=== PATIENT | female | born 1975 | race American Indian/Alaskan Native ===

== ENCOUNTER 2020-02-03 12:21 | Emergency (ER) | payer SELFPAY ==
--- NOTE | 2020-02-03 12:49 | Emergency Department Report ---
Blank Doc - Documentation Documentation: 44-year-old female that presents with chest pain and SOB. This initial assessment/diagnostic orders/clinical plan/treatment(s) is/are subject to change based on patient's health status, clinical progression and re- assessment by fellow clinical providers in the ED. Further treatment and workup at subsequent clinical providers discretion. Patient/guardians urged not to elope from the ED as their condition may be serious if not clinically assessed and managed. Initial orders include: 1- Patient sent to [facility] for further evaluation and treatment 2- cardiac workup
--- NOTE | 2020-02-03 13:46 | XRay Report ---
CHEST PA AND LATERAL VIEWS INDICATION: Chest Pain. COMPARISON: None. FINDINGS: Support devices: None. Heart: Within normal limits. Lungs/Pleura: No acute pulmonary or pleural findings. IMPRESSION: 1. No acute findings. Signer Name: Ludin Esparza MD Signed: 02/03/2020 1:41 PM Workstation Name: [id number]
[2020-02-03 13:47] LABS: Basophils # (Auto) 0.1 K/mm3 (0.0-0.1); Basophils % (Auto) 0.8 % (0.0-1.8); Eosinophils # (Auto) 0.3 K/mm3 (0.0-0.4); Eosinophils % (Auto) 3.1 % (0.0-4.3); Hematocrit 33.4 % (30.3-42.9); Hemoglobin 11.1 gm/dl (10.1-14.3); Lymphocytes # (Auto) 2.5 K/mm3 (1.2-5.4); Lymphocytes % (Auto) 31.2 % (13.4-35.0); Mean Corpuscular HGB Conc 33 % (30-34); Mean Corpuscular Volume 85 fl (79-97); Monocytes # (Auto) 0.5 K/mm3 (0.0-0.8); Monocytes % (Auto) 5.6 % (0.0-7.3); Platelet Count 311 K/mm3 (140-440); Red Blood Count 3.95 M/mm3 (3.65-5.03); Red Cell Distribution Width 14.6 % (13.2-15.2)
[2020-02-03 13:58] LABS: INR 0.79 (0.87-1.13); Partial Thromboplastin Time 25.9 Sec. (24.2-36.6)
[2020-02-03 14:13] LABS: Alanine Aminotransferase 18 units/L (7-56); Blood Urea Nitrogen 12 mg/dL (7-17); Calcium 9.4 mg/dL (8.4-10.2); Hemolysis Index 26
[2020-02-03 14:14] LABS: BUN/Creatinine Ratio 20
[2020-02-03] MEDS ORDERED: CYCLOBENZAPRINE 10 MG TAB PO ONE (17:36)
[2020-02-03] MEDS ORDERED: ASPIRIN 325 MG TAB PO ONE (17:36)
--- NOTE | 2020-02-03 17:42 | Emergency Department Report ---
ED Chest Pain HPI - General Chief Complaint: Chest Pain Stated Complaint: CHEST PAIN, LEFT ARM PAIN Time Seen by Provider: 02/03/20 12:48 Source: patient Mode of arrival: Ambulatory Limitations: No Limitations - History of Present Illness Initial Comments: Patient is a 44-year-old female presents emergency room complaints of midsternal chest pain that began 3 days ago. She states that today she began having pain in her left arm which prompted her to present to the emergency room. She states the pain is worse with palpation and worse with movement. She denies any cough, nausea, vomiting, diarrhea, fever, leg swelling, shortness of breath. She d enies any recent travel, recent surgery, hormone use, immobilization. She denies any known sick contacts. She states that she had a stress test approximately 5 years ago which she reports was normal. She denies any past medical history. No allergies to medications. She states that she had a hys terectomy. She does have a family cardiac history, she states that her father had an KS, her brother has CAD, and her other brother had an KS. - Related Data Previous Rx's Medication Instructions Recorded Last Taken Type Docusate Sodium [Colace CAP] 100 mg PO BID capsule 12/20/17 Unknown Rx HYDROmorphone [Dilaudid] 1 mg PO Q4H PRN #20 tablet 12/20/17 Unknown Rx Nitrofurantoin Holmes/M-Cryst 100 mg PO Q12HR #20 capsule 10/21/19 Unknown Rx [Macrobid CAP] Phenazopyridine [Pyridium] 200 mg PO TID #10 tab 10/21/19 Unknown Rx Naproxen [EC-Naprosyn] 500 mg PO BID PRN #14 tablet.dr 02/03/20 Unknown Rx methOCARBAMOL [Robaxin TAB] 500 mg PO BID PRN #14 tab 02/03/20 Unknown Rx Allergies Allergy/AdvReac Type Severity Reaction Status Date / Time No Known Allergies Allergy Verified 12/15/17 14:33 Heart Score - HEART Score History: Moderately suspicious EKG: Normal Age: < 45 Risk factors: 1-2 risk factors Troponin: < normal limit HEART Score: 2 ED Review of Systems ROS: Stated complaint: CHEST PAIN, LEFT ARM PAIN Other details as noted in HPI Comment: All other systems reviewed and negative ED Past Medical Hx - Past Medical History Previous Medical History?: No Hx Hypertension: No Hx Heart Attack/AMI: No Hx Liver Disease: No Hx Renal Disease: No Hx Seizures: No Hx Asthma: No Hx COPD: No Hx Tuberculosis: No Hx HIV: No - Surgical History Past Surgical History?: Yes Hx Breast Surgery: Yes (REDUCTION) Additional Surgical History: ovarian cyst removed. colon repair. hysterectomy - Social History Smoking Status: Never Smoker Substance Use Type: None - Medications Home Medications: Home Medications Medication Instructions Recorded Confirmed Last Taken Type Docusate Sodium [Colace CAP] 100 mg PO BID capsule 12/20/17 Unknown Rx HYDROmorphone [Dilaudid] 1 mg PO Q4H PRN #20 tablet 12/20/17 Unknown Rx Nitrofurantoin Holmes/M-Cryst 100 mg PO Q12HR #20 capsule 10/21/19 Unknown Rx [Macrobid CAP] Phenazopyridine [Pyridium] 200 mg PO TID #10 tab 10/21/19 Unknown Rx Naproxen [EC-Naprosyn] 500 mg PO BID PRN #14 tablet.dr 02/03/20 Unknown Rx methOCARBAMOL [Robaxin TAB] 500 mg PO BID PRN #14 tab 02/03/20 Unknown Rx ED Physical Exam - General Limitations: No Limitations General appearance: alert, in no apparent distress - Head Head exam: Present: atraumatic, normocephalic - Eye Eye exam: Present: normal appearance - ENT ENT exam: Present: mucous membranes moist - Respiratory Respiratory exam: Present: normal lung sounds bilaterally, chest wall tenderness (reproducible mid sternal chest wall ttp, no crepitus, no deformities). Absent: respiratory distress, wheezes, rales, rhonchi, stridor, accessory muscle use, decreased breath sounds, prolonged expiratory - Cardiovascular Cardiovascular Exam: Present: regular rate, normal rhythm, normal heart sounds. Absent: systolic murmur, diastolic murmur, rubs, gallop - Neurological Exam Neurological exam: Present: alert, oriented X3 - Psychiatric Psychiatric exam: Present: normal affect, normal mood - Skin Skin exam: Present: warm, dry, intact ED Course Vital Signs 02/03/20 12:48 Temperature 98.5 F Pulse Rate 77 Respiratory 18 Rate Blood Pressure 124/83 [Right] O2 Sat by Pulse 100 Oximetry ARNOL score - Arnol Score Age > 65: (0) No Aspirin use within the Past 7 Days: (0) No 3 or more CAD Risk Factors: (0) No 2 or more Angina events in past 24 hrs: (0) No Known CAD with more than 50% Stenosis: (0) No Elevated Cardiac Markers: (0) No ST Deviation Greater than 0.5mm: (0) No ARNOL Score: 0 ED Medical Decision Making - Lab Data Result diagrams: 02/03/20 12:53 02/03/20 12:53 Lab Results 02/03/20 02/03/20 02/03/20 Range/Units 12:53 12:53 12:53 WBC 8.1 (4.5-11.0) K/mm3 RBC 3.95 (3.65-5.03) M/mm3 Hgb 11.1 (10.1-14.3) gm/dl Hct 33.4 (30.3-42.9) % MCV 85 (79-97) fl MCH 28 (28-32) pg MCHC 33 (30-34) % RDW 14.6 (13.2-15.2) % Plt Count 311 (140-440) K/mm3 Lymph % (Auto) 31.2 (13.4-35.0) % Holmes % (Auto) 5.6 (0.0-7.3) % Eos % (Auto) 3.1 (0.0-4.3) % Baso % (Auto) 0.8 (0.0-1.8) % Lymph # (Auto) 2.5 (1.2-5.4) K/mm3 Holmes # (Auto) 0.5 (0.0-0.8) K/mm3 Eos # (Auto) 0.3 (0.0-0.4) K/mm3 Baso # (Auto) 0.1 (0.0-0.1) K/mm3 Seg Neutrophils % 59.3 (40.0-70.0) % Seg Neutrophils # 4.8 (1.8-7.7) K/mm3 PT 11.1 L (12.2-14.9) Sec. INR 0.79 L (0.87-1.13) APTT 25.9 (24.2-36.6) Sec. Sodium 139 (137-145) mmol/L Potassium 3.9 (3.6-5.0) mmol/L Chloride 101.9 (98-107) mmol/L Carbon Dioxide 25 (22-30) mmol/L Anion Gap 16 mmol/L BUN 12 (7-17) mg/dL Creatinine 0.6 (0.6-1.2) mg/dL Estimated GFR > 60 ml/min BUN/Creatinine Ratio 20 % Glucose 83 (65-100) mg/dL Calcium 9.4 (8.4-10.2) mg/dL Total Bilirubin 0.30 (0.1-1.2) mg/dL AST 18 (5-40) units/L ALT 18 (7-56) units/L Alkaline Phosphatase 115 (35-129) units/L Troponin T < 0.010 (0.00-0.029) ng/mL Total Protein 7.8 (6.3-8.2) g/dL Albumin 4.0 (3.9-5) g/dL Albumin/Globulin Ratio 1.1 % 02/03/20 Range/Units 15:59 WBC (4.5-11.0) K/mm3 RBC (3.65-5.03) M/mm3 Hgb (10.1-14.3) gm/dl Hct (30.3-42.9) % MCV (79-97) fl MCH (28-32) pg MCHC (30-34) % RDW (13.2-15.2) % Plt Count (140-440) K/mm3 Lymph % (Auto) (13.4-35.0) % Holmes % (Auto) (0.0-7.3) % Eos % (Auto) (0.0-4.3) % Baso % (Auto) (0.0-1.8) % Lymph # (Auto) (1.2-5.4) K/mm3 Holmes # (Auto) (0.0-0.8) K/mm3 Eos # (Auto) (0.0-0.4) K/mm3 Baso # (Auto) (0.0-0.1) K/mm3 Seg Neutrophils % (40.0-70.0) % Seg Neutrophils # (1.8-7.7) K/mm3 PT (12.2-14.9) Sec. INR (0.87-1.13) APTT (24.2-36.6) Sec. Sodium (137-145) mmol/L Potassium (3.6-5.0) mmol/L Chloride (98-107) mmol/L Carbon Dioxide (22-30) mmol/L Anion Gap mmol/L BUN (7-17) mg/dL Creatinine (0.6-1.2) mg/dL Estimated GFR ml/min BUN/Creatinine Ratio % Glucose (65-100) mg/dL Calcium (8.4-10.2) mg/dL Total Bilirubin (0.1-1.2) mg/dL AST (5-40) units/L ALT (7-56) units/L Alkaline Phosphatase (35-129) units/L Troponin T < 0.010 (0.00-0.029) ng/mL Total Protein (6.3-8.2) g/dL Albumin (3.9-5) g/dL Albumin/Globulin Ratio % - EKG Data EKG shows normal: sinus rhythm, intervals, QRS complexes, ST-T waves Rate: normal - EKG Data 02/03/20 17:41 LAD no STEMI - Radiology Data Radiology results: report reviewed CHEST PA AND LATERAL VIEWS INDICATION: Chest Pain. COMPARISON: None. FINDINGS: Support devices: None. Heart: Within normal limits. Lungs/Pleura: No acute pulmonary or pleural findings. IMPRESSION: 1. No acute findings. Signer Name: Ludin Esparza MD Signed: 02/03/2020 1:41 PM Workstation Name: [id number] Transcribed By: SW Dictated By: Ludin Esparza MD Electronically Authenticated By: Ludin Esparza MD Signed Date/Time: 02/03/201340 DD/ 40 TD/TT: - Medical Decision Making Patient is a 44-year-old female presents emergency room complaints of midsternal chest pain that began 3 days ago. She states that today she began having pain in her left arm which prompted her to present to the emergency room. She states the pain is worse with palpation and worse with movement. She denies any cough, nausea, vomiting, diarrhea, fever, leg swelling, shortness of breath. She denies any recent travel, recent surgery, hormone use, immobilization. She denies any known sick contacts. She states that she had a stress test approximately 5 years ago which she reports was normal. She denies any past medical history. No allergies to medications. She states that she had a hysterectomy. She does have a family cardiac history, she states that her father had an KS, her brother has CAD, and her other brother had an KS. Vitals are normal. On exam:reproducible mid sternal chest wall ttp, no crepitus, no deformities. Labs are normal. Troponin is negative x2. EKG with left axis deviation, otherwise normal. Chest x-ray with no acute process. Examination appears most consistent with costochondritis as pain is reproducible upon palpation. Heart score is 2, ARNOL score is 0, low risk for cardiac event. PERC criteria negative for PE. Patient given aspirin and Flexeril while in the emergency department and symptoms improved. Discussed all results with patient and answered questions. Patient will be referred to cardiology. Patient given prescription for naproxen and Robaxin. Advised patient Please take medication as prescribed as needed. Do not drive or operate machinery while taking this relaxer Robaxin. May use ice pack, heating pad, rest. Follow-up with a primary care doctor. Follow-up with a aquaculture and fisheries professor. Return to emergency room immediately for any new or worsening symptoms. - Differential Diagnosis Costochondritis, anemia, GERD, muscle strain, ACS, PTX, PNA, pericarditis Critical care attestation.: If time is entered above; I have spent that time in minutes in the direct care of this critically ill patient, excluding procedure time. ED Disposition Clinical Impression: Chest pain Qualifiers: Chest pain type: unspecified Qualified Code(s): R07.9 - Chest pain, unspecified Disposition: DC-01 TO HOME OR SELFCARE Is pt being admited?: No Does the pt Need Aspirin: Yes (given) Condition: Stable Instructions: Chest Pain (ED), Costochondritis (ED) Additional Instructions: Please take medication as prescribed as needed. Do not drive or operate machinery while taking this relaxer Robaxin. May use ice pack, heating pad, rest. Follow-up with a primary care doctor. Follow-up with a aquaculture and fisheries professor. Return to emergency room immediately for any new or worsening symptoms. Prescriptions: Naproxen [EC-Naprosyn] 500 mg PO BID PRN #14 tablet. PRN Reason: pain methOCARBAMOL [Robaxin TAB] 500 mg PO BID PRN #14 tab PRN Reason: pain Referrals: your, primary care doctor [Other] - 2-3 Days HO,JAMILA, MD [Staff Physician] - 2-3 Days Forms: Work/School Release Form(ED) Time of Disposition: 17:42 Print Language: TAJIK
[2020-02-03 19:21] VITALS: BP 140/88
== END 2020-02-03 17:40 | disposition home or self-care (01) ==
LOC: ED 12:21
DX: R07.89 Other chest pain (principal); Z90.710 Acquired absence of both cervix and uterus; Z98.890 Other specified postprocedural states; Z79.899 Other long term (current) drug therapy
CPT/HCPCS: 36415; 71046; 80053; 84484; 85025; 85610; 85730; 93005

== ENCOUNTER 2020-06-10 09:14 | Emergency (ER) | payer SELFPAY ==
--- NOTE | 2020-06-10 09:41 | Event Note ---
ED Screening Note Date of service: 06/10/20 Time: 09:38 ED Screening Note: This initial assessment/diagnostic orders/clinical plan/treatment(s) is/are subject to change based on patients health status, clinical progression and re- assessment by fellow clinical providers in the ED. Further treatment and workup at subsequent clinical providers discretion. Patient/guardian urged not to elope from the ED as their condition may be serious if not clinically assessed and managed. Initial orders include: This is a 44-year-old female she presents to the emergency room complaining of left arm pain chest pain and left leg and lower back pain. She describes the pain as stabbing 9/10. She has a past medical history of fibromyalgia. Her blood pressure is 185/109 she denies history of hypertension. She denies shortness of breath she denies fever chills cough. Respirations easy and unlab ored she is in no acute distress
[2020-06-10 10:34] LABS: Hematocrit 35.6 % (30.3-42.9); Hemoglobin 11.8 gm/dl (10.1-14.3); Mean Corpuscular HGB Conc 33 % (30-34); Mean Corpuscular Volume 86 fl (79-97); Platelet Count 254 K/mm3 (140-440); Red Blood Count 4.12 M/mm3 (3.65-5.03); Red Cell Distribution Width 14.6 % (13.2-15.2)
[2020-06-10 10:54] LABS: Blood Urea Nitrogen 15 mg/dL (7-17); Calcium 8.8 mg/dL (8.4-10.2); Hemolysis Index 48
[2020-06-10 10:57] LABS: BUN/Creatinine Ratio 25
[2020-06-10] MEDS ORDERED: KETOROLAC 30 MG/1 ML INJ IV ONE (11:31)
[2020-06-10] MEDS ORDERED: ONDANSETRON 4 MG/2 ML INJ IV ONE (11:31)
[2020-06-10] MEDS ORDERED: MORPHINE 4 MG/1 ML INJ IV ONE (11:31)
[2020-06-10 11:33] LABS: Bilirubin,Urine NEG (Negative); Blood,Urine NEG (Negative); Color,Urine Yellow (Yellow); Mucus,Urine FEW /HPF; Protein,Urine <15 mg/dL mg/dL (Negative); Urobilinogen,Urine < 2.0 mg/dL (<2.0)
--- NOTE | 2020-06-10 11:37 | Emergency Department Report ---
ED Chest Pain HPI - General Chief Complaint: Pain General Stated Complaint: LFT ARM/LOWER BACK/LFT LEG PAIN Time Seen by Provider: 06/10/20 09:57 Source: patient, old records reviewed Mode of arrival: Ambulatory Limitations: No Limitations - History of Present Illness Initial Comments: 44-year-old female with a past medical history of fibromyalgia presents to the hospital with complaints of intermittent left-sided body pain x3 days. Pain initially started at the left arm, left shoulder, and left upper chest. Pain then spread to the left flank lower back, and left leg. Chest is described as stabbing and intermittent. She denies associated symptoms such as shortness of breath, nausea, vomiting, or diaphoresis. There are no aggravating alleviating factors reported. Patient does have a history of fibromyalgia and states she usually has generalized body aches and swelling to her feet and the symptoms are atypical for her fibromyalgia. Patient is also noted to be hypertensive with no reported history. She is currently taking Lyrica. She has been off of prednisone for 2 weeks and Ambien for sleep x3 weeks. Positive family history of CAD. Patient is a non-smoker. Reports unremarkable stress test in 2014. She is not currently on any pain medication as per medical record patient has been prescribed Dilaudid in the past primary care doctor Liliana and front end driver Dr. Mcneil Severity scale (0 -10): 9 - Related Data Previous Rx's Medication Instructions Recorded Last Taken Type Docusate Sodium [Colace CAP] 100 mg PO BID capsule 12/20/17 Unknown Rx HYDROmorphone [Dilaudid] 1 mg PO Q4H PRN #20 tablet 12/20/17 Unknown Rx Nitrofurantoin [place]/M-Cryst 100 mg PO Q12HR #20 capsule 10/21/19 Unknown Rx [Macrobid CAP] Phenazopyridine [Pyridium] 200 mg PO TID #10 tab 10/21/19 Unknown Rx Naproxen [EC-Naprosyn] 500 mg PO BID PRN #14 tablet. 02/03/20 Unknown Rx methOCARBAMOL [Robaxin TAB] 500 mg PO BID PRN #14 tab 02/03/20 Unknown Rx HYDROcodone/APAP 5-325 [[place] 1 each PO Q6HR PRN #14 tablet 06/10/20 Unknown Rx 5/325] Ibuprofen [Motrin] 800 mg PO Q8HR PRN #20 tablet 06/10/20 Unknown Rx Allergies Allergy/AdvReac Type Severity Reaction Status Date / Time No Known Allergies Allergy Verified 12/15/17 14:33 Heart Score - HEART Score History: Slightly suspicious EKG: Normal Age: < 45 Risk factors: 1-2 risk factors Troponin: < normal limit HEART Score: 1 ED Review of Systems ROS: Stated complaint: LFT ARM/LOWER BACK/LFT LEG PAIN Other details as noted in HPI ED Past Medical Hx - Past Medical History Previous Medical History?: Yes Hx Hypertension: No Hx Heart Attack/AMI: No Hx Liver Disease: No Hx Renal Disease: No Hx Seizures: No Hx Asthma: No Hx COPD: No Hx Tuberculosis: No Hx HIV: No Additional medical history: Fibromyalgia - Surgical History Past Surgical History?: Yes Hx Breast Surgery: Yes (REDUCTION) Additional Surgical History: ovarian cyst removed. colon repair. hysterectomy - Social History Smoking Status: Never Smoker Substance Use Type: Alcohol - Medications Home Medications: Home Medications Medication Instructions Recorded Confirmed Last Taken Type Docusate Sodium [Colace CAP] 100 mg PO BID capsule 12/20/17 Unknown Rx HYDROmorphone [Dilaudid] 1 mg PO Q4H PRN #20 tablet 12/20/17 Unknown Rx Nitrofurantoin [place]/M-Cryst 100 mg PO Q12HR #20 capsule 10/21/19 Unknown Rx [Macrobid CAP] Phenazopyridine [Pyridium] 200 mg PO TID #10 tab 10/21/19 Unknown Rx Naproxen [EC-Naprosyn] 500 mg PO BID PRN #14 tablet.dr 02/03/20 Unknown Rx methOCARBAMOL [Robaxin TAB] 500 mg PO BID PRN #14 tab 02/03/20 Unknown Rx HYDROcodone/APAP 5-325 [[place] 1 each PO Q6HR PRN #14 tablet 06/10/20 Unknown Rx 5/325] Ibuprofen [Motrin] 800 mg PO Q8HR PRN #20 tablet 06/10/20 Unknown Rx ED Physical Exam - General Limitations: No Limitations ED Course Vital Signs 06/10/20 06/10/20 06/10/20 09:23 09:25 10:34 Temperature 98.5 F Pulse Rate 69 69 Respiratory 20 20 18 Rate Blood Pressure 185/109 Blood Pressure 185/109 [Right] O2 Sat by Pulse 100 100 Oximetry 06/10/20 06/10/20 11:18 14:03 Temperature Pulse Rate 60 65 Respiratory 16 16 Rate Blood Pressure Blood Pressure 160/93 158/92 [Right] O2 Sat by Pulse 100 100 Oximetry ARNOL score - Arnol Score Age > 65: (0) No Aspirin use within the Past 7 Days: (0) No 3 or more CAD Risk Factors: (0) No 2 or more Angina events in past 24 hrs: (0) No Known CAD with more than 50% Stenosis: (0) No Elevated Cardiac Markers: (0) No ST Deviation Greater than 0.5mm: (0) No ARNOL Score: 0 ED Medical Decision Making - Lab Data Result diagrams: 06/10/20 10:03 06/10/20 10:03 Lab Results 06/10/20 06/10/20 06/10/20 Range/Units 10:03 10:03 11:09 WBC 6.4 (4.5-11.0) K/mm3 RBC 4.12 (3.65-5.03) M/mm3 Hgb 11.8 (10.1-14.3) gm/dl Hct 35.6 (30.3-42.9) % MCV 86 (79-97) fl MCH 29 (28-32) pg MCHC 33 (30-34) % RDW 14.6 (13.2-15.2) % Plt Count 254 (140-440) K/mm3 Sodium 140 (137-145) mmol/L Potassium 4.0 (3.6-5.0) mmol/L Chloride 107.7 H (98-107) mmol/L Carbon Dioxide 26 (22-30) mmol/L Anion Gap 10 mmol/L BUN 15 (7-17) mg/dL Creatinine 0.6 (0.6-1.2) mg/dL Estimated GFR > 60 ml/min BUN/Creatinine Ratio 25 % Glucose 97 (65-100) mg/dL Calcium 8.8 (8.4-10.2) mg/dL Troponin T < 0.010 (0.00-0.029) ng/mL Urine Color Yellow (Yellow) Urine Turbidity Clear (Clear) Urine pH 5.0 (5.0-7.0) Ur Specific [place] 1.019 (1.003-1.030) Urine Protein <15 mg/dl (Negative) mg/dL Urine Glucose (UA) Neg (Negative) mg/dL Urine Ketones Neg (Negative) mg/dL Urine Blood Neg (Negative) Urine Nitrite Neg (Negative) Urine Bilirubin Neg (Negative) Urine Urobilinogen < 2.0 (<2.0) mg/dL Ur Leukocyte Esterase Neg (Negative) Urine WBC (Auto) 4.0 (0.0-6.0) /HPF Urine RBC (Auto) 2.0 (0.0-6.0) /HPF U Epithel Cells (Auto) 3.0 (0-13.0) /HPF Urine Mucus Few /HPF 06/10/20 Range/Units 12:54 WBC (4.5-11.0) K/mm3 RBC (3.65-5.03) M/mm3 Hgb (10.1-14.3) gm/dl Hct (30.3-42.9) % MCV (79-97) fl MCH (28-32) pg MCHC (30-34) % RDW (13.2-15.2) % Plt Count (140-440) K/mm3 Sodium (137-145) mmol/L Potassium (3.6-5.0) mmol/L Chloride (98-107) mmol/L Carbon Dioxide (22-30) mmol/L Anion Gap mmol/L BUN (7-17) mg/dL Creatinine (0.6-1.2) mg/dL Estimated GFR ml/min BUN/Creatinine Ratio % Glucose (65-100) mg/dL Calcium (8.4-10.2) mg/dL Troponin T < 0.010 (0.00-0.029) ng/mL Urine Color (Yellow) Urine Turbidity (Clear) Urine pH (5.0-7.0) Ur Specific [place] (1.003-1.030) Urine Protein (Negative) mg/dL Urine Glucose (UA) (Negative) mg/dL Urine Ketones (Negative) mg/dL Urine Blood (Negative) Urine Nitrite (Negative) Urine Bilirubin (Negative) Urine Urobilinogen (<2.0) mg/dL Ur Leukocyte Esterase (Negative) Urine WBC (Auto) (0.0-6.0) /HPF Urine RBC (Auto) (0.0-6.0) /HPF U Epithel Cells (Auto) (0-13.0) /HPF Urine Mucus /HPF - EKG Data -: EKG Interpreted by Id EKG shows normal: sinus rhythm, ST-T waves (no stemi) Rate: normal - EKG Data When compared to previous EKG there are: no significant change - Radiology Data Radiology results: report reviewed CTA CHEST, ABDOMEN, AND PELVIS WITHOUT AND WITH CONTRAST INDICATION / CLINICAL INFORMATION: left arm, chest, flank pain (disection protocol). TECHNIQUE: Axial CT images were obtained through the chest, abdomen, and pelvis before and after injection of Omnipaque 350 IV contrast. 3 plane MIP and/or 3D reconstructions were produced. Dissection protocol. All CT scans at this location are performed using CT dose reduction for ALARA by means of automated exposure control. COMPARISON: CT abdomen pelvis 01/21/2012; chest radiograph 02/03/2020 FINDINGS: HEART: No significant abnormality. THORACIC AORTA: No significant abnormality. GREAT VESSELS: No significant abnormality. PULMONARY ARTERIES: No significant abnormality. ADDITIONAL CHEST FINDINGS: 4 mm nodule in the right lung apex (axial series 3 image 51) ABDOMINAL AORTA: No significant abnormality. RENAL ARTERIES: No significant abnormality. CELIAC ARTERY: No significant abnormality. SUPERIOR MESENTERIC ARTERY: No significant abnormality. INFERIOR MESENTERIC ARTERY: No significant abnormality. RIGHT ILIAC ARTERIES: No significant abnormality.. LEFT ILIAC ARTERIES: No significant abnormality.. ADDITIONAL ABDOMINOPELVIC FINDINGS: No significant abnormality. SKELETAL STRUCTURES: No significant abnormality. IMPRESSION: 1. No acute abnormality in the chest, abdomen, or pelvis. No specific finding to explain this patient's clinical symptoms. No evidence of dissection. 2. 4 mm nodule in the right lung apex. In a patient with low risk for pulmonary neoplasm, no routine follow-up is recommended. In a patient with high risk for pulmonary neoplasm consider dedicated CT chest in 12 months. - Medical Decision Making Patient presents to the hospital primarily muscle skeletal pain of the arm, leg as well as pain to the chest wall to palpation and complains of left flank pain. Positive history of fibromyalgia. ED work-up reveals reproducible upper left chest wall tenderness, EKG unchanged x2, troponin negative x2, negative CT angio chest abdomen and pelvis, normal labs and UA. Patient's pain is thought to be atypical and musculoskeletal in origin. Patient was treated with narcotic pain medication with a history of use of home p.o. Dilaudid in the past. Patient also has not been on her prednisone. Patient will be treated for musculoskeleta l pain with anti-inflammatories and narcotic pain medication. Outpatient follow-up with her primary care doctor and front end driver will be encouraged. Patient will be encouraged to follow-up with PMD for BP recheck since she denies a history of hypertension Critical Care Time: No Critical care attestation.: If time is entered above; I have spent that time in minutes in the direct care of this critically ill patient, excluding procedure time. ED Disposition Clinical Impression: Musculoskeletal pain, Chest wall pain, History of fibromyalgia, Elevated blood pressure reading Disposition: TO HOME OR SELFCARE Is pt being admited?: No Does the pt Need Aspirin: No Condition: Stable Instructions: Chest Pain (ED), Myofascial Pain Syndrome and Fibromyalgia, Chest Wall Pain, Preventing Hypertension Additional Instructions: Take the medication as prescribed. Follow-up with your doctor or doctor/clinic provided. Follow-up with your doctor for blood pressure recheck to determine if medication is needed. Return if symptoms worsen as indicated by your discharge instructions. Prescriptions: Ibuprofen [Motrin] 800 mg PO Q8HR PRN #20 tablet PRN Reason: Pain , Severe (7-10) HYDROcodone/APAP 5-325 [[place] 5/325] 1 each PO Q6HR PRN #14 tablet PRN Reason: Pain Referrals: DEL VIGIL MD [Primary Care Provider] - 3-5 Days MD Tarun [Other] - 3-5 Days Time of Disposition: 14:24
[2020-06-10] MEDS ORDERED: HYDROmorphone 1 MG/1 ML INJ IV ONE ×2 (12:07→13:50)
--- NOTE | 2020-06-10 13:32 | Cat Scan Report ---
CTA CHEST, ABDOMEN, AND PELVIS WITHOUT AND WITH CONTRAST INDICATION / CLINICAL INFORMATION: left arm, chest, flank pain (disection protocol). TECHNIQUE: Axial CT images were obtained through the chest, abdomen, and pelvis before and after injection of Om nipaque 350 IV contrast. 3 plane MIP and/or 3D reconstructions were produced. Dissection protocol. Al l CT scans at this location are performed using CT dose reduction for ALARA by means of automated exp osure control. COMPARISON: CT abdomen pelvis 01/21/2012; chest radiograph 02/03/2020 FINDINGS: HEART: No significant abnormality. THORACIC AORTA: No significant abnormality. GREAT VESSELS: No significant abnormality. PULMONARY ARTERIES: No significant abnormality. ADDITIONAL CHEST FINDINGS: 4 mm nodule in the right lung apex (axial series 3 image 51) ABDOMINAL AORTA: No significant abnormality. RENAL ARTERIES: No significant abnormality. CELIAC ARTERY: No significant abnormality. SUPERIOR MESENTERIC ARTERY: No significant abnormality. INFERIOR MESENTERIC ARTERY: No significant abnormality. RIGHT ILIAC ARTERIES: No significant abnormality.. LEFT ILIAC ARTERIES: No significant abnormality.. ADDITIONAL ABDOMINOPELVIC FINDINGS: No significant abnormality. SKELETAL STRUCTURES: No significant abnormality. IMPRESSION: 1. No acute abnormality in the chest, abdomen, or pelvis. No specific finding to explain this patient 's clinical symptoms. No evidence of dissection. 2. 4 mm nodule in the right lung apex. In a patient with low risk for pulmonary neoplasm, no routine follow-up is recommended. In a patient with high risk for pulmonary neoplasm consider dedicated CT ch est in 12 months. Signer Name: Ced Land MD Signed: 06/10/2020 1:28 PM Workstation Name: [email or web address]
[2020-06-10 14:04] VITALS: BP 158/92
== END 2020-06-10 14:41 | disposition home or self-care (01) ==
LOC: ED 09:14
DX: M79.18 Myalgia, other site (principal); R07.89 Other chest pain; R03.0 Elevated blood-pressure reading, without diagnosis of hypertension; Z79.899 Other long term (current) drug therapy; Z98.890 Other specified postprocedural states; Z90.710 Acquired absence of both cervix and uterus; Z87.39 Personal history of other diseases of the musculoskeletal system and connective tissue
CPT/HCPCS: 36415; 71275; 74174; 80048; 81001; 84484; 85027; 96374; 96375; 96376; 99284; J1170; J1885; J2270; J2405; Q9967; 93005

== ENCOUNTER 2020-12-10 23:07 | Emergency (ER) | payer OTHER ==
[2020-12-11 09:47] LABS: Bilirubin,Urine NEG (Negative); Blood,Urine NEG (Negative); Calcium Oxalate Crystals,Urine 1+; Color,Urine Yellow (Yellow); Mucus,Urine 3+ /HPF
--- NOTE | 2020-12-11 10:24 | XRay Report ---
CHEST 2 VIEWS INDICATION / CLINICAL INFORMATION: SOB. COMPARISON: 02/03/2020 FINDINGS: SUPPORT DEVICES: None. HEART / MEDIASTINUM: No significant abnormality. LUNGS / PLEURA: No significant pulmonary or pleural abnormality. No pneumothorax. ADDITIONAL FINDINGS: No significant additional findings. IMPRESSION: 1. No acute findings. Signer Name: Domo Renteria MD Signed: 12/11/2020 10:19 AM Workstation Name: [email or web address]
--- NOTE | 2020-12-11 11:59 | Emergency Department Report ---
ED Abdominal Pain HPI - General Chief Complaint: Pain General Stated Complaint: BODYACHES/LOWER LFT SIDE PAIN Time Seen by Provider: 12/11/20 11:57 Source: patient Mode of arrival: Ambulatory Limitations: No Limitations - History of Present Illness Initial Comments: 45-year-old female with a past medical history of fibromyalgia presents to the ER today with complaints of generalized body aches but also pain in her left low back/left flank area rating around into the left abdomen. Patient states that the symptoms started about 2 days ago. Patient denies any associated nausea, vomiting, diarrhea, constipation, dysuria hematuria, URI symptoms, cough fever or chills. She states that she has never had this low back pain/left flank pain and abdominal pain with her fibromyalgia in the past. patient states that she sees a sewing techniques demonstrator for fibromyalgia, and he has been tried on different pain medication but apparently nothing seems to be working. MD Complaint: abdominal pain, flank pain, other (Left back pain) -: days(s) (2) - Related Data Previous Rx's Medication Instructions Recorded Last Taken Type Docusate Sodium [Colace CAP] 100 mg PO BID capsule 12/20/17 Unknown Rx HYDROmorphone [Dilaudid] 1 mg PO Q4H PRN #20 tablet 12/20/17 Unknown Rx HYDROcodone/APAP 5-325 [[place] 1 each PO Q6HR PRN #14 tablet 06/10/20 Unknown Rx 5/325] Ibuprofen [Motrin] 600 mg PO Q8H PRN #30 tablet 12/11/20 Unknown Rx Tramadol HCl/Acetaminophen 1 each PO Q6HR PRN #12 tablet 12/11/20 Unknown Rx [Ultracet Tablet] tiZANidine [Zanaflex 4mg TAB] 4 mg PO TID PRN #20 tablet 12/11/20 Unknown Rx Allergies Allergy/AdvReac Type Severity Reaction Status Date / Time No Known Allergies Allergy Verified 12/15/17 14:33 ED Review of Systems ROS: Stated complaint: BODYACHES/LOWER LFT SIDE PAIN Other details as noted in HPI Comment: All other systems reviewed and negative Constitutional: denies: chills, fever Eyes: denies: eye pain, eye discharge, vision change ENT: denies: ear pain, throat pain Respiratory: denies: cough, shortness of breath, SOB with exertion, SOB at rest, wheezing Cardiovascular: denies: chest pain, palpitations Endocrine: no symptoms reported Gastrointestinal: abdominal pain. denies: nausea, vomiting, diarrhea, constipation, hematemesis, melena, hematochezia Genitourinary: denies: urgency, dysuria, frequency, hematuria, discharge, abnormal menses, dyspareunia Musculoskeletal: back pain Skin: denies: rash, lesions, change in color, change in hair/nails, pruritus Neurological: denies: headache, weakness, paresthesias, confusion, abnormal gait, vertigo Psychiatric: denies: anxiety, depression, auditory hallucinations, visual hallucinations, homicidal thoughts, suicidal thoughts Hematological/Lymphatic: denies: easy bleeding, easy bruising, swollen glands ED Past Medical Hx - Past Medical History Previous Medical History?: Yes Hx Hypertension: No Hx Heart Attack/AMI: No Hx Liver Disease: No Hx Renal Disease: No Hx Seizures: No Hx Asthma: No Hx COPD: No Hx Tuberculosis: No Hx HIV: No Additional medical history: Fibromyalgia - Surgical History Past Surgical History?: Yes Hx Breast Surgery: Yes (REDUCTION) Additional Surgical History: ovarian cyst removed. colon repair. hysterectomy - Social History Smoking Status: Never Smoker Substance Use Type: Alcohol - Medications Home Medications: Home Medications Medication Instructions Recorded Confirmed Last Taken Type Docusate Sodium [Colace CAP] 100 mg PO BID capsule 12/20/17 Unknown Rx HYDROmorphone [Dilaudid] 1 mg PO Q4H PRN #20 tablet 12/20/17 Unknown Rx HYDROcodone/APAP 5-325 [[place] 1 each PO Q6HR PRN #14 tablet 06/10/20 Unknown Rx 5/325] Ibuprofen [Motrin] 600 mg PO Q8H PRN #30 tablet 12/11/20 Unknown Rx Tramadol HCl/Acetaminophen 1 each PO Q6HR PRN #12 tablet 12/11/20 Unknown Rx [Ultracet Tablet] tiZANidine [Zanaflex 4mg TAB] 4 mg PO TID PRN #20 tablet 12/11/20 Unknown Rx ED Physical Exam - General Limitations: No Limitations General appearance: alert, in no apparent distress - Head Head exam: Present: atraumatic, normocephalic, normal inspection - Eye Eye exam: Present: normal appearance, PERRL, EOMI Pupils: Present: normal accommodation - ENT ENT exam: Present: normal exam, mucous membranes moist - Neck Neck exam: Present: normal inspection, full ROM - Respiratory Respiratory exam: Present: normal lung sounds bilaterally. Absent: respiratory distress, wheezes, rales, rhonchi - Cardiovascular Cardiovascular Exam: Present: regular rate, normal rhythm, normal heart sounds - GI/Abdominal GI/Abdominal exam: Present: soft, tenderness (Mild ttp left upper and lower abdomen without guarding or rebound). Absent: distended - Back Exam Back exam: Present: normal inspection, full ROM, CVA tenderness (L) - Neurological Exam Neurological exam: Present: alert, oriented X3, CN II-XII intact, normal gait - Psychiatric Psychiatric exam: Present: normal affect, normal mood - Skin Skin exam: Present: intact ED Course Vital Signs 12/11/20 12/11/20 12/11/20 01:48 09:31 14:56 Temperature 98.3 F 98.4 F 96.8 F L Pulse Rate 71 87 88 Respiratory 18 16 16 Rate Blood Pressure 136/84 Blood Pressure 144/94 [Left] Blood Pressure 124/71 [Right] O2 Sat by Pulse 96 95 100 Oximetry ED Medical Decision Making - Lab Data Result diagrams: 12/11/20 12:43 12/11/20 12:43 - Radiology Data Radiology results: report reviewed Patient: SUMAN OLIVER MR#: [id number] : 1975 Acct:[id number] Age/Sex: 45 / F ADM Date: 12/10/20 Loc: ED Attending Dr: Ordering Physician: VALERIANO ARAIZA Date of Service: 12/11/20 Procedure(s): CT abdomen pelvis wo con Accession Number(s): [id number] cc: VALERIANO ARAIZA CT ABDOMEN AND PELVIS WITHOUT CONTRAST INDICATION / CLINICAL INFORMATION: Left flank pain. TECHNIQUE: Axial CT images were obtained through the abdomen and pelvis without IV contrast. All CT scans at this location are performed using CT dose reduction for ALARA by means of automated exposure control. COMPARISON: CTA abdomen and pelvis 06/10/2020. FINDINGS: LOWER CHEST: No significant abnormality. LIVER: No significant abnormality. GALLBLADDER: No significant abnormality. BILE DUCTS: No significant abnormality. PANCREAS: No significant abnormality. SPLEEN: No significant abnormality. ADRENALS: No significant abnormality. RIGHT KIDNEY / URETER: No significant abnormality. LEFT KIDNEY / URETER: No significant abnormality. STOMACH / SMALL BOWEL: No significant abnormality. COLON: No significant abnormality. APPENDIX: Nonvisualized. PERITONEUM: No free fluid. No free air. No fluid collection. LYMPH NODES: No significant adenopathy. AORTA / ARTERIES: No significant abnormality. IVC / VEINS: No significant abnormality. URINARY BLADDER: No significant abnormality. REPRODUCTIVE ORGANS: No significant abnormality. ADDITIONAL FINDINGS: Prior hernia repair of the anterior left abdominal wall without acute abnormality. SKELETAL SYSTEM: No acute abnormality. IMPRESSION: Negative for acute abdominopelvic abnormality. Signer Name: Domo Renteria MD Signed: 12/11/2020 1:01 PM Workstation Name: [email or web address] Transcribed By: SB Dictated By: DOMO RENTERIA MD Electronically Authenticated By: DOMO RENTERIA MD Signed Date/Time: 12/11/20 1301 DD/ 1257 TD/TT: Patient: SUMAN OLIVER MR#: [id number] : 1975 Acct:[id number] Age/Sex: 45 / F ADM Date: 12/10/20 Loc: ED Attending Dr: Ordering Physician: VIVI FRANCOIS MD Date of Service: 12/11/20 Procedure(s): XR chest routine 2V Accession Number(s): [id number] cc: ED MD ALESSANDRO Fluoro Time In Minutes: CHEST 2 VIEWS INDICATION / CLINICAL INFORMATION: SOB. COMPARISON: 02/03/2020 FINDINGS: SUPPORT DEVICES: None. HEART / MEDIASTINUM: No significant abnormality. LUNGS / PLEURA: No significant pulmonary or pleural abnormality. No pneumothorax. ADDITIONAL FINDINGS: No significant additional findings. IMPRESSION: 1. No acute findings. Signer Name: Domo Renteria MD Signed: 12/11/2020 10:19 AM Workstation Name: [email or web address] Transcribed By: SB Dictated By: DOMO RENTERIA MD Electronically Authenticated By: DOMO RENTERIA MD Signed Date/Time: 12/11/20 1019 DD/ 1019 TD/TT: - Medical Decision Making All labs reviewed -- CBC shows nothing acute; CMP unremarkable; UA appears more contaminated that true UTI, reflex culture was ordered by lab; CT abdomen and pelvis shows nothing acute. Pt observed sleeping comfortably in chair. She was easily aroused and is not in any acute distress. She is not toxic or ill appearing, she is not dehydrated and she is neurologically intact with normal gait. All her vitals, including all reviewed vital signs have been stable. Discussed imaging results and lab results with patient. Exact cause of her pain at this time unclear at this time, but I did discuss with her that her left lower back/flank pain could be musculoskeletal and could be related to her spine at this time. There is no indication for any admission, specialist consult or transfer at this time. I did recommend that she follows up closely with her primary care doctor for possible referral to orthospine specialist and outpatient MRI and for evaluation. Patient expressed understanding of all instructions and agree with plan. Patient was stable at time of discharge. Critical care attestation.: If time is entered above; I have spent that time in minutes in the direct care of this critically ill patient, excluding procedure time. ED Disposition Clinical Impression: Myalgia, Left flank pain, Low back pain Disposition: 01 HOME / SELF CARE / HOMELESS Is pt being admited?: No Does the pt Need Aspirin: No Condition: Stable Instructions: Acute Back Pain, Adult, Musculoskeletal Pain, Flank Pain, Adult Additional Instructions: I recommend that you take the pain medication/muscle relaxers as prescribed. I also recommend that you follow-up closely with your primary care doctor this week. Return to the ER if your symptoms changes or worsens in any way. Prescriptions: Ibuprofen [Motrin] 600 mg PO Q8H PRN #30 tablet PRN Reason: Pain Tramadol HCl/Acetaminophen [Ultracet Tablet] 1 each PO Q6HR PRN #12 tablet PRN Reason: Pain , Severe (7-10) tiZANidine [Zanaflex 4mg TAB] 4 mg PO TID PRN #20 tablet PRN Reason: Muscle Spasm Referrals: DEL VIGIL MD [Primary Care Provider] - 3-5 Days Forms: Work/School Release Form(ED) Time of Disposition: 14:45
[2020-12-11] MEDS ORDERED: KETOROLAC 60 MG/2 ML INJ IM ONE (12:06)
--- NOTE | 2020-12-11 13:06 | Cat Scan Report ---
CT ABDOMEN AND PELVIS WITHOUT CONTRAST INDICATION / CLINICAL INFORMATION: Left flank pain. TECHNIQUE: Axial CT images were obtained through the abdomen and pelvis without IV contrast. All CT scans at this location are performed using CT dose reduction for ALARA by means of automated exposure control. COMPARISON: CTA abdomen and pelvis 06/10/2020. FINDINGS: LOWER CHEST: No significant abnormality. LIVER: No significant abnormality. GALLBLADDER: No significant abnormality. BILE DUCTS: No significant abnormality. PANCREAS: No significant abnormality. SPLEEN: No significant abnormality. ADRENALS: No significant abnormality. RIGHT KIDNEY / URETER: No significant abnormality. LEFT KIDNEY / URETER: No significant abnormality. STOMACH / SMALL BOWEL: No significant abnormality. COLON: No significant abnormality. APPENDIX: Nonvisualized. PERITONEUM: No free fluid. No free air. No fluid collection. LYMPH NODES: No significant adenopathy. AORTA / ARTERIES: No significant abnormality. IVC / VEINS: No significant abnormality. URINARY BLADDER: No significant abnormality. REPRODUCTIVE ORGANS: No significant abnormality. ADDITIONAL FINDINGS: Prior hernia repair of the anterior left abdominal wall without acute abnormalit y. SKELETAL SYSTEM: No acute abnormality. IMPRESSION: Negative for acute abdominopelvic abnormality. Signer Name: Domo Renteria MD Signed: 12/11/2020 1:01 PM Workstation Name: [email or web address]
[2020-12-11 14:17] LABS: Basophils # (Auto) 0.1 K/mm3 (0.0-0.1); Eosinophils # (Auto) 0.4 K/mm3 (0.0-0.4); Eosinophils % (Auto) 5.2 % (0.0-4.3); Hemoglobin 12.4 gm/dl (10.1-14.3); Lymphocytes # (Auto) 2.9 K/mm3 (1.2-5.4); Lymphocytes % (Auto) 37.3 % (13.4-35.0); Mean Corpuscular HGB Conc 32 % (30-34); Mean Corpuscular Volume 89 fl (79-97); Monocytes # (Auto) 0.4 K/mm3 (0.0-0.8); Monocytes % (Auto) 5.7 % (0.0-7.3); Platelet Count 294 K/mm3 (140-440); Red Blood Count 4.38 M/mm3 (3.65-5.03); Red Cell Distribution Width 15.2 % (13.2-15.2)
[2020-12-11 14:38] LABS: Alanine Aminotransferase 30 units/L (7-56); Albumin 4.3 g/dL (3.9-5); Blood Urea Nitrogen 14 mg/dL (7-17); Calcium 9.8 mg/dL (8.4-10.2); Hemolysis Index 12
[2020-12-11 14:58] VITALS: BP 144/94
[2020-12-11 15:00] LABS: BUN/Creatinine Ratio 28
== END 2020-12-11 15:00 | disposition home or self-care (01) ==
LOC: ED 23:07
DX: M54.5 Low back pain (principal); M79.10 Myalgia, unspecified site; R10.9 Unspecified abdominal pain; Z98.890 Other specified postprocedural states; Z79.899 Other long term (current) drug therapy; Z90.710 Acquired absence of both cervix and uterus
CPT/HCPCS: 36415; 71046; 74176; 80053; 81001; 83690; 85025; 87086; 96372; 99284; J1885

== ENCOUNTER 2021-02-24 13:19 | Emergency (ER) | payer SELFPAY ==
[2021-02-24 13:58] LABS: Bilirubin,Urine NEG (Negative); Blood,Urine SM (Negative); Color,Urine Yellow (Yellow); Mucus,Urine 3+ /HPF; Urobilinogen,Urine < 2.0 mg/dL (<2.0)
--- NOTE | 2021-02-24 14:05 | Emergency Department Report ---
ED General Adult HPI - General Chief complaint: Abdominal Pain Stated complaint: lower back and adom Time Seen by Provider: 02/24/21 13:42 Source: patient Mode of arrival: Ambulatory Limitations: No Limitations - History of Present Illness Initial comments: Patient is a 45-year-old female presents emergency room complaints of lower back pain and abdominal pain for several years. She denies any fall or injury. Patient is currently under the care of a orthopedic occupational medicine specialist in [facility]. She states that she recently had injections performed one month ago. Patient states that she also has chronic abdominal pain secondary to a panniculectomy and revision of a mesh hernia repair. Patient states that she has seen the surgeon for this pain, and they advised her that they were not able to fully remove the mesh, and they did not recommend having another abdominal procedure. She states that she also has urinary frequency with decreased urine output. She denies any fever, vomiting, diarrhea, hematochezia, melena, hematemesis, numbness, weakness, bowel or bladder incontinence. Past medical history of fibromyalgia. No allergies medications. - Related Data Previous Rx's Medication Instructions Recorded Last Taken Type Docusate Sodium [Colace CAP] 100 mg PO BID capsule 12/20/17 Unknown Rx HYDROmorphone [Dilaudid] 1 mg PO Q4H PRN #20 tablet 12/20/17 Unknown Rx HYDROcodone/APAP 5-325 [[place] 1 each PO Q6HR PRN #14 tablet 06/10/20 Unknown Rx 5/325] Ibuprofen [Motrin] 600 mg PO Q8H PRN #30 tablet 12/11/20 Unknown Rx Tramadol HCl/Acetaminophen 1 each PO Q6HR PRN #12 tablet 12/11/20 Unknown Rx [Ultracet Tablet] tiZANidine [Zanaflex 4mg TAB] 4 mg PO TID PRN #20 tablet 12/11/20 Unknown Rx Naproxen 375 mg PO BID PRN #14 tablet 02/24/21 Unknown Rx cephALEXin [Keflex] 500 mg PO BID 7 Days #14 cap 02/24/21 Unknown Rx Allergies Allergy/AdvReac Type Severity Reaction Status Date / Time No Known Allergies Allergy Verified 02/24/21 13:20 ED Review of Systems ROS: Stated complaint: lower back and adom Other details as noted in HPI Comment: All other systems reviewed and negative ED Past Medical Hx - Past Medical History Hx Hypertension: No Hx Heart Attack/AMI: No Hx Liver Disease: No Hx Renal Disease: No Hx Seizures: No Hx Asthma: No Hx COPD: No Hx Tuberculosis: No Hx HIV: No Additional medical history: Fibromyalgia - Surgical History Hx Breast Surgery: Yes (REDUCTION) Additional Surgical History: ovarian cyst removed. colon repair. hysterectomy - Social History Smoking Status: Never Smoker Substance Use Type: Alcohol - Medications Home Medications: Home Medications Medication Instructions Recorded Confirmed Last Taken Type Docusate Sodium [Colace CAP] 100 mg PO BID capsule 12/20/17 Unknown Rx HYDROmorphone [Dilaudid] 1 mg PO Q4H PRN #20 tablet 12/20/17 Unknown Rx HYDROcodone/APAP 5-325 [[place] 1 each PO Q6HR PRN #14 tablet 06/10/20 Unknown Rx 5/325] Ibuprofen [Motrin] 600 mg PO Q8H PRN #30 tablet 12/11/20 Unknown Rx Tramadol HCl/Acetaminophen 1 each PO Q6HR PRN #12 tablet 12/11/20 Unknown Rx [Ultracet Tablet] tiZANidine [Zanaflex 4mg TAB] 4 mg PO TID PRN #20 tablet 12/11/20 Unknown Rx Naproxen 375 mg PO BID PRN #14 tablet 02/24/21 Unknown Rx cephALEXin [Keflex] 500 mg PO BID 7 Days #14 cap 02/24/21 Unknown Rx ED Physical Exam - General Limitations: No Limitations General appearance: alert, in no apparent distress - Head Head exam: Present: atraumatic, normocephalic - Eye Eye exam: Present: normal appearance - ENT ENT exam: Present: mucous membranes moist - Neck Neck exam: Present: normal inspection, full ROM. Absent: tenderness, meningismus - Respiratory Respiratory exam: Present: normal lung sounds bilaterally. Absent: respiratory distress, wheezes, rales, rhonchi, stridor, chest wall tenderness, accessory muscle use, decreased breath sounds, prolonged expiratory - Cardiovascular Cardiovascular Exam: Present: regular rate, normal rhythm, normal heart sounds. Absent: systolic murmur, diastolic murmur, rubs, gallop - GI/Abdominal GI/Abdominal exam: Present: soft, normal bowel sounds. Absent: distended, tenderness, guarding, rebound, rigid - Back Exam Back exam: Present: normal inspection, full ROM, paraspinal tenderness (bilateral lumbar paraspinal ttp, no midline c-spine, T-spine or l-spine ttp, no step offs, no deformities ). Absent: vertebral tenderness - Neurological Exam Neurological exam: Present: alert, oriented X3, CN II-XII intact, normal gait. Absent: motor sensory deficit - Psychiatric Psychiatric exam: Present: normal affect, normal mood - Skin Skin exam: Present: warm, dry, intact ED Course Vital Signs 02/24/21 02/24/21 13:26 15:22 Temperature 98.4 F Pulse Rate 69 72 Respiratory 18 18 Rate Blood Pressure 130/82 Blood Pressure 138/87 [Left] O2 Sat by Pulse 98 100 Oximetry ED Medical Decision Making - Lab Data Result diagrams: 02/24/21 13:56 02/24/21 13:56 - Medical Decision Making Patient is a 45-year-old female presents emergency room complaints of lower back pain and abdominal pain for several years. She denies any fall or injury. Patient is currently under the care of a orthopedic occupational medicine specialist in [facility]. She states that she recently had injections performed one month ago. Patient states that she also has chronic abdominal pain secondary to a panniculectomy and revision of a mesh hernia repair. Patient states that she has seen the surgeon for this pain, and they advised her that they were not able to fully remove the mesh, and they did not recommend having another abdominal procedure. She states that she also has urinary frequency with decreased urine output. She denies any fever, vomiting, diarrhea, hematochezia, melena, hematemesis, numbness, weakness, bowel or bladder incontinence. Past medical history of fibromyalgia. No allergies medications. Vitals are normal. On exam:bilateral lumbar paraspinal ttp, no midline c-spine, T-spine or l-spine ttp, no step offs, no deformities, no focal neuro deficits, ambulatory without difficulty, no abd ttp. Labs are stable. UA shows evidence of possible UTI, there are many epithelial cells, could be due to contamination, given that she is having lower back discomfort, lower abdominal discomfort and urinary symptoms, will cover for UTI. She has no obstructive symptoms. She has no abd tenderness on exam, no fever, no leukocytosis. Patient given Toradol IM in the emergency department with improvement of her symptoms. Advised patient Please take medication as prescribed. Follow-up with your primary care doctor. Follow- up with your deployment specialist. Follow-up with your surgeon. Return to emergency room for any new or worsening symptoms. Critical care attestation.: If time is entered above; I have spent that time in minutes in the direct care of this critically ill patient, excluding procedure time. ED Disposition Clinical Impression: Chronic abdominal pain Chronic back pain Qualifiers: Back pain location: low back pain Back pain laterality: bilateral Sciatica presence: without sciatica Qualified Code(s): M54.50 - Low back pain, unspecified UTI (urinary tract infection) Qualifiers: Urinary tract infection type: acute cystitis Hematuria presence: with hematuria Qualified Code(s): N30.01 - Acute cystitis with hematuria Disposition: HOME / SELF CARE / HOMELESS Is pt being admited?: No Does the pt Need Aspirin: No Condition: Stable Instructions: Urinary Tract Infection, Adult, [id number], Abdominal Pain (ED) Additional Instructions: Please take medication as prescribed. Follow-up with your primary care doctor. Follow-up with your deployment specialist. Follow-up with your surgeon. Return to emergency room for any new or worsening symptoms. Prescriptions: cephALEXin [Keflex] 500 mg PO BID 7 Days #14 cap Naproxen 375 mg PO BID PRN #14 tablet PRN Reason: pain Referrals: your, primary care doctor [Other] - 2-3 Days your, orthopedic doctor [Other] - 2-3 Days your, surgeon [Other] - 2-3 Days Time of Disposition: 14:41 Print Language: SERBIAN
[2021-02-24 14:17] LABS: Basophils % (Auto) 0.8 % (0.0-1.8); Eosinophils # (Auto) 0.2 K/mm3 (0.0-0.4); Eosinophils % (Auto) 3.2 % (0.0-4.3); Hemoglobin 11.1 gm/dl (10.1-14.3); Lymphocytes # (Auto) 1.6 K/mm3 (1.2-5.4); Lymphocytes % (Auto) 30.5 % (13.4-35.0); Mean Corpuscular HGB Conc 32 % (30-34); Mean Corpuscular Volume 88 fl (79-97); Monocytes # (Auto) 0.3 K/mm3 (0.0-0.8); Monocytes % (Auto) 5.5 % (0.0-7.3); Platelet Count 294 K/mm3 (140-440); Red Blood Count 3.98 M/mm3 (3.65-5.03)
[2021-02-24 14:33] LABS: Alanine Aminotransferase 16 units/L (7-56); Blood Urea Nitrogen 12 mg/dL (7-17); Calcium 9.4 mg/dL (8.4-10.2); Hemolysis Index 15
[2021-02-24 14:37] LABS: BUN/Creatinine Ratio 17
[2021-02-24] MEDS ORDERED: KETOROLAC 60 MG/2 ML INJ IM ONE (14:40)
[2021-02-24 15:23] VITALS: BP 138/87
== END 2021-02-24 15:23 | disposition home or self-care (01) ==
LOC: ED 13:19
DX: G89.29 Other chronic pain (principal); R10.9 Unspecified abdominal pain; M54.50 Low back pain, unspecified; N39.0 Urinary tract infection, site not specified; M79.7 Fibromyalgia; Z72.89 Other problems related to lifestyle; Z79.899 Other long term (current) drug therapy
CPT/HCPCS: 36415; 80053; 81001; 83690; 84703; 85025; 87086; 96372; 99283; J1885

== ENCOUNTER 2021-10-14 19:51 | Emergency (ER) | payer SELFPAY ==
[2021-10-14 20:14] VITALS: BP 116/65
== END 2021-10-15 16:08 | disposition left against medical advice (07) ==
LOC: ED 19:51
DX: M54.50 Low back pain, unspecified (principal); R10.9 Unspecified abdominal pain; Z53.21 Procedure and treatment not carried out due to patient leaving prior to being seen by health care provider

== ENCOUNTER 2021-12-31 09:35 | Emergency (ER) | payer SELFPAY ==
[2021-12-31 09:48] VITALS: BP 130/76
== END 2021-12-31 12:50 | disposition left against medical advice (07) ==
LOC: ED 09:35
DX: R10.30 Lower abdominal pain, unspecified (principal); M54.50 Low back pain, unspecified; Z53.21 Procedure and treatment not carried out due to patient leaving prior to being seen by health care provider